=== PATIENT | male | born 1970 | race Caucasian/White ===

== ENCOUNTER 2017-09-03 11:53 | Emergency (ER) | payer MEDICAID ==
[2017-09-03 12:19] VITALS: BP 170/105
[2017-09-03] MEDS ORDERED: Bacitracin Oint 1 GM U/D Packet TOP ONE (12:59)
[2017-09-03] MEDS ORDERED: Lidocaine 1% 20 ML MDV INJECT ONE (12:59)
--- NOTE | 2017-09-03 13:01 | EDM.PDOC ---
ED HPI GENERAL MEDICAL PROBLEM - General Chief Complaint: Laceration Stated Complaint: CUT RIGHT THUMB Time Seen by Provider: 09/03/17 13:00 Source of Information: Reports: Patient, RN Notes Reviewed - History of Present Illness INITIAL COMMENTS - FREE TEXT/NARRATIVE: pt cut his rt thumb on a razor blade. Onset: Today, Sudden Duration: Hour(s): Location: Reports: Upper Extremity, Right Severity: Moderate Associated Symptoms: Reports: No Other Symptoms Right 1-Thumb Pain Score (Numeric/FACES): 5 - Related Data Allergies Allergy/AdvReac Type Severity Reaction Status Date / Time No Known Allergies Allergy Verified 09/03/17 12:54 Home Meds: Home Meds NK [No Known Home Meds] 09/05/16 [History] Past Medical History Musculoskeletal History: Reports: None Neurological History: Reports: None Psychiatric History: Reports: Anxiety, Depression, Mood Swings, Panic Attack, Other (See Below) Other Psychiatric History: etoh addiction - Infectious Disease History Infectious Disease History: Reports: Chicken Pox - Past Surgical History Neurological Surgical History: Reports: Other (See Below) Musculoskeletal Surgical History: Reports: Shoulder Surgery Social & Family History - Family History Family Medical History: Noncontributory - Tobacco Use Smoking Status *Q: Never Smoker Second Hand Smoke Exposure: No - Caffeine Use Caffeine Use: Reports: None - Alcohol Use Days Per Week of Alcohol Use: 3 Number of Drinks Per Day: 3 Total Drinks Per Week: 9 - Recreational Drug Use Recreational Drug Use: No Recreational Drug Type: Reports: Marijuana/Hashish ED ROS GENERAL - Review of Systems Review Of Systems: See Below Constitutional: Reports: No Symptoms HEENT: Reports: No Symptoms Respiratory: Reports: No Symptoms Cardiovascular: Reports: No Symptoms Endocrine: Reports: No Symptoms GI/Abdominal: Reports: No Symptoms : Reports: No Symptoms Skin: Reports: Other (PT HAS LACERATION AT THE TIP OF THE RT THUMB. tHIS ENCIRLES THE TIP OF THE THUMB. ) ED EXAM, SKIN/RASH Exam: See Below Text/Narrative:: pT HAS A 2 INCH LAC THAT ENCIRLES THE TIP OF THE THUMB. tHIS WAS CUT WITH A SCAPEL. Exam Limited By: No Limitations General Appearance: Alert Extremities: Other ( PT HAS A 2 INCH LCERATION WHICH ENCIRLES THE TIP OF THE FINGER. -- RT THUMB, tHERE IS ONLY A SMALL PORTION THAT IS STILL ATTACHED. ) Neurological: Alert, Oriented Course - Vital Signs Last Recorded V/S: Last Vital Signs Temp 36.2 C 09/03/17 12:51 Pulse 60 09/03/17 12:51 Resp 16 09/03/17 12:51 BP 170/105 H 09/03/17 12:51 Pulse Ox 99 09/03/17 12:51 - Orders/Labs/Meds Meds: Medications Discontinued Medications Generic Name Dose Route Start Last Admin Trade Name Ana Laura PRN Reason Stop Dose Admin Bacitracin 1 dose 09/03/17 12:59 09/03/17 13:50 Bacitracin Oint 1 Gm TOP 09/03/17 13:00 1 dose ONETIME ONE Administration Lidocaine HCl 20 ml 09/03/17 12:59 09/03/17 13:51 Xylocaine 1% INJECT 09/03/17 13:00 20 ml ONETIME ONE Administration - Re-Assessments/Exams Free Text/Narrative Re-Assessment/Exam: 09/03/17 14:30 tHE AREA WAS INFILTRATED WITH LIDOCAINE. iT WAS CLEANSED WELL tHE WOUND WAS CLOSED WITH CHROMIC 5-0 AND 5-0 PROLENE. iT WAS DRESSED WITH BACATRACIN 09/05/17 07:45 Pt will be ollowing up with Dr Bender. He was informed that the color of the flap needs to be followed. He was also informed that he may experience some numbness in the tip of the finger with the type of cut that he has. Departure - Departure Time of Disposition: 13:52 Disposition: Home, Self-Care 01 Condition: Fair Clinical Impression: Laceration - Discharge Information Instructions: Laceration Care, Adult, [id number] Referrals: PCP,None [Primary Care Provider] - Forms: ED Department Discharge Care Plan Goals: KEEP DRY, NO FURTHER OINTMENTS, USE A NON STICK DRESSING AND A SPLINT, SR IN 10 DAYS, APPT WITH DR EBNDER ON FRIDAY.
== END 2017-09-03 14:07 | disposition home or self-care (01) ==
LOC: JP.ED 11:53
DX: S61.011A Laceration without foreign body of right thumb without damage to nail, initial encounter (principal); F32.9 Major depressive disorder, single episode, unspecified; Z98.890 Other specified postprocedural states; W45.8XXA Other foreign body or object entering through skin, initial encounter
CPT/HCPCS: 12002; 99283; A4217

== ENCOUNTER 2017-10-26 09:24 | Emergency (ER) | payer MEDICAID ==
[2017-10-26 09:57] VITALS: BP 146/92
--- NOTE | 2017-10-26 10:27 | EDM.PDOC ---
ED HPI GENERAL MEDICAL PROBLEM - General Chief Complaint: Lower Extremity Injury/Pain Stated Complaint: LT FOOT PAIN/DROPPED SOMETHING HEAVY ON IT Time Seen by Provider: 10/26/17 10:00 Source of Information: Reports: Patient History Limitations: Reports: No Limitations - History of Present Illness INITIAL COMMENTS - FREE TEXT/NARRATIVE: 47-year-old male dropped something on his left foot several days ago, has some ecchymosis in his toes and pain with weightbearing, the last 2 nights seem to be worse so he wanted to make sure nothing was broken. Location: Reports: Lower Extremity, Left Severity: Mild Associated Symptoms: Reports: No Other Symptoms - Related Data Allergies Allergy/AdvReac Type Severity Reaction Status Date / Time No Known Allergies Allergy Verified 10/26/17 09:49 Home Meds: Home Meds NK [No Known Home Meds] 09/05/16 [History] Past Medical History - Past Health History Medical/Surgical History: Denies Medical/Surgical History Musculoskeletal History: Reports: None Neurological History: Reports: None Psychiatric History: Reports: Anxiety, Depression, Mood Swings, Panic Attack, Other (See Below) Other Psychiatric History: etoh addiction - Infectious Disease History Infectious Disease History: Reports: Chicken Pox - Past Surgical History Neurological Surgical History: Reports: Other (See Below) Musculoskeletal Surgical History: Reports: Shoulder Surgery Social & Family History - Family History Family Medical History: Noncontributory - Tobacco Use Smoking Status *Q: Never Smoker Second Hand Smoke Exposure: No - Caffeine Use Caffeine Use: Reports: None - Alcohol Use Days Per Week of Alcohol Use: 3 Number of Drinks Per Day: 3 Total Drinks Per Week: 9 - Recreational Drug Use Recreational Drug Use: No Recreational Drug Type: Reports: Marijuana/Hashish Review of Systems - Review of Systems Review Of Systems: See Below Constitutional: Denies: Fever Respiratory: Denies: Shortness of Breath Cardiovascular: Denies: Chest Pain Skin: Reports: Bruising (Some bruising in his middle toes of the left foot) ED EXAM, GENERAL - Physical Exam Exam: See Below Exam Limited By: No Limitations General Appearance: Alert, No Apparent Distress Respiratory/Chest: No Respiratory Distress Extremities: Other (Patient has palpation tenderness of the dorsal aspect of the left foot, tenderness with movement of the second third and fourth toes with some ecchymosis of the toes. He has no swelling of the foot or deformity.) Course - Vital Signs Last Recorded V/S: Last Vital Signs Temp 97.5 F 10/26/17 09:53 Pulse 69 10/26/17 09:53 Resp 14 10/26/17 09:53 BP 146/92 H 10/26/17 09:53 Pulse Ox 98 10/26/17 09:53 - Orders/Labs/Meds Orders: Active Orders 24 hr Category Date Time Status Foot Comp Min 3V Lt [CR] Stat Exams 10/26/17 10:00 Taken - Re-Assessments/Exams Free Text/Narrative Re-Assessment/Exam: 10/26/17 10:26 An x-ray of the left foot was obtained that shows no evidence of fracture. This was relayed to the patient and he would like to just continue with conservative therapy with anti-inflammatories and increase activity as tolerated. Departure - Departure Time of Disposition: 10:42 Disposition: Home, Self-Care 01 Condition: Good Clinical Impression: Contusion of foot, left Qualifiers: Encounter type: initial encounter Qualified Code(s): S90.32XA - Contusion of left foot, initial encounter - Discharge Information Instructions: Foot Contusion, [id number] Referrals: PCP,None [Primary Care Provider] - Forms: ED Department Discharge Care Plan Goals: Ibuprofen or naproxen should help, Michael wrapping to support the foot and you should be able to increase activity as tolerated. Consider rechecking with podiatry at the clinic in the next 1-2 weeks if not improving satisfactorily. - My Orders Last 24 Hours: My Active Orders 10/26/17 10:00 Foot Comp Min 3V Lt [CR] Stat - Assessment/Plan Last 24 Hours: My Active Orders 10/26/17 10:00 Foot Comp Min 3V Lt [CR] Stat
--- NOTE | 2017-10-27 09:29 | CR ---
Foot Comp Min 3V Lt FINDINGS:There is normal alignment. There are no posttraumatic findings. There are no significant deg enerative changes. No evidence of fracture, dislocation, or arthritic or inflammatory change. The sof t tissues are unremarkable. IMPRESSION: Negative exam of the foot.
== END 2017-10-26 10:44 | disposition home or self-care (01) ==
LOC: JP.ED 09:24
DX: S90.129A Contusion of unspecified lesser toe(s) without damage to nail, initial encounter (principal); W20.8XXA Other cause of strike by thrown, projected or falling object, initial encounter
CPT/HCPCS: 73630-26-LT; 73630-LT; 99284

== ENCOUNTER 2023-08-08 19:37 | Emergency (ER) | payer MEDICAID ==
[2023-08-08] MEDS ORDERED: Lidocaine 1% 5 ML VIAL INJECT ONE (20:17)
[2023-08-08 20:20] VITALS: BP 151/100; PULSE 84
[2023-08-08] MEDS ORDERED: Lidocaine 1% 5 ML VIAL ONE (21:07)
[2023-08-08] MEDS ORDERED: Cephalexin 250 MG Cap PO ONE (21:34)
[2023-08-08] MEDS ORDERED: Diphtheria,Pertussis(Acell),Tetanus Vaccine 0.5 ML Syringe IM ONE (21:35)
== END 2023-08-08 22:00 | disposition home or self-care (01) ==
LOC: JP.ED 19:37
DX: S66.126A Laceration of flexor muscle, fascia and tendon of right little finger at wrist and hand level, initial encounter (principal); S61.214A Laceration without foreign body of right ring finger without damage to nail, initial encounter; Z23 Encounter for immunization; W26.0XXA Contact with knife, initial encounter; Y99.0 Civilian activity done for income or pay
CPT/HCPCS: 12001; 29130; 90471; 90715; 99282; A9270

== ENCOUNTER 2024-01-16 10:54 | Emergency (ER) | payer MEDICAID ==
[2024-01-16 11:10] VITALS: BP 131/82; PULSE 66
== END 2024-01-16 12:05 | disposition home or self-care (01) ==
LOC: JP.ED 10:54
DX: S51.811A Laceration without foreign body of right forearm, initial encounter (principal); W26.8XXA Contact with other sharp object(s), not elsewhere classified, initial encounter
CPT/HCPCS: 99282

== ENCOUNTER 2024-10-04 08:37 | Emergency (ER) | payer MEDICAID ==
[2024-10-04 08:51] VITALS: BP 126/72; PULSE 62
== END 2024-10-04 12:10 | disposition home or self-care (01) ==
LOC: JP.ED 08:37
DX: M54.2 Cervicalgia (principal)
CPT/HCPCS: 72050; 72050-26; 72125; 72125-26; 76377; 99283; 99284

== ENCOUNTER 2025-11-01 12:14 | Emergency (ER) | payer MEDICAID ==
[2025-11-01 12:59] VITALS: BP 150/87; PULSE 60
== END 2025-11-01 14:37 | disposition home or self-care (01) ==
LOC: JP.ED 12:14
DX: I10 Essential (primary) hypertension (principal)
CPT/HCPCS: 99283